=== PATIENT | female | born 1965 | race Two or more races ===

== ENCOUNTER 2018-04-11 10:27 | Emergency (ER) | payer OTHER ==
[~2018-04-11] VITALS: Ht 154.9 cm; Wt 65.8 kg
[2018-04-11] MEDS ORDERED: TAMOXIFEN CITRA20 MG (10:47)
== END 2018-04-11 14:39 | disposition home or self-care (01) ==
LOC: ER 10:27
DX: H10.9 Unspecified conjunctivitis (principal); J32.8 Other chronic sinusitis

== ENCOUNTER 2018-04-30 10:26 | Emergency (ER) | payer OTHER ==
[~2018-04-30] VITALS: Ht 154.9 cm; Wt 65.8 kg
[~2018-04-30 10:26] MED LIST: TAMOXIFEN CITRA20 MG
== END 2018-04-30 16:08 | disposition home or self-care (01) ==
LOC: ER 10:26
DX: K52.9 Noninfective gastroenteritis and colitis, unspecified (principal)

== ENCOUNTER 2018-05-02 08:09 | Emergency (ER) | payer OTHER ==
[~2018-05-02] VITALS: Ht 154.9 cm; Wt 65.8 kg
== END 2018-05-02 10:58 | disposition home or self-care (01) ==
LOC: ER 08:09
DX: K52.9 Noninfective gastroenteritis and colitis, unspecified (principal)

== ENCOUNTER 2021-12-19 08:13 | Emergency (ER) | payer OTHER ==
[~2021-12-19] VITALS: Ht 154.9 cm; Wt 64.9 kg
[2021-12-19] MEDS ORDERED: PRILOSEC OTC20 MG (08:26)
[2021-12-19] MEDS ORDERED: NORVASC5 MG (08:26)
== END 2021-12-19 14:01 | disposition home or self-care (01) ==
LOC: ER 08:13
DX: K29.70 Gastritis, unspecified, without bleeding (principal); K52.9 Noninfective gastroenteritis and colitis, unspecified; Z20.822 Contact with and (suspected) exposure to COVID-19

== ENCOUNTER 2023-09-07 17:06 | Emergency (ER) | payer OTHER ==
[~2023-09-07] VITALS: Ht 154.9 cm; Wt 62.6 kg
[~2023-09-07 17:06] MED LIST changes: +NORVASC5 MG; +PRILOSEC OTC20 MG
[2023-09-07] MEDS ORDERED: LIPITOR20 MG PO (17:56)
== END 2023-09-08 03:15 | disposition home or self-care (01) ==
LOC: ER 17:07
DX: M77.8 Other enthesopathies, not elsewhere classified (principal); Z85.3 Personal history of malignant neoplasm of breast